=== PATIENT | female | born 1965 | race Caucasian/White ===

== ENCOUNTER 2017-09-14 12:16 | Observation (INO) | payer MEDICARE ==
[2017-09-14 13:07] LABS: ABS Basophils 0.1 10^3/ul (0-0.2); ABS Eosinophils 0.3 10^3/ul (0-0.6); ABS Lymphocytes 1.4 10^3/ul (1.0-4.8); ABS Monocytes 0.5 10^3/ul (0-0.8); ABS Neutrophils 2.9 10^3/ul (1.5-7.7); ABS Nucleated RBC 0 10^3/ul; Eosinophil % 5.5 % (0-6); Hematocrit 32 % (35-47); Hemoglobin 10.8 g/dl (12.0-16.0); Lymphocyte % 26.8 % (25-47); Mean Corpuscular HGB Conc 34 g/dl (31-36); Mean Corpuscular Hemoglobin 29 pg (27-31); Mean Corpuscular Volume 87 fL (80-97); Mean Platelet Volume 7 um3 (7.4-10.4); Nucleated Red Blood Cells % 0; Platelet Count 238 10^3/ul (150-450); Red Blood Count 3.67 10^6/ul (4.0-5.4); Red Cell Distribution Width 13 % (10.5-15); White Blood Count 5.1 10^3/ul (3.5-10.8)
[2017-09-14 13:17] LABS: INR 0.94 (0.77-1.02)
--- NOTE | 2017-09-14 13:23 | RAD ---
HISTORY: Status post anterior cervical fusion COMPARISONS: June 07, 2013 VIEWS: 1: frontal portable view of the chest at 1:06 PM FINDINGS: LINES AND TUBES: None. CARDIOMEDIASTINAL SILHOUETTE: The cardiomediastinal silhouette is normal for portable technique. PLEURA: The costophrenic angles are sharp. No pleural abnormalities are noted. LUNG PARENCHYMA: The lungs are clear. ABDOMEN: The upper abdomen is clear. There is no subphrenic gas. BONES AND SOFT TISSUES: The patient is status post anterior cervical fusion IMPRESSION: NO ACTIVE CARDIOPULMONARY DISEASE.
[2017-09-14 13:49] LABS: EGFR Non-African American 54.6 (>60)
[2017-09-14] MEDS ORDERED: Furosemide IV* 10 MG/ML VIAL (40 MG) IV ONE (14:01)
[2017-09-14] MEDS ORDERED: Potassium Chlor TAB* 20 MEQ TAB.ER PO ONE (15:53)
[2017-09-14] MEDS ORDERED: Iodixanol* (CONTRAST) 320 MG/ML 100 ML SDV IV ONE (16:12)
[2017-09-14] MEDS ORDERED: Albuterol HFA INHALER* 8 gm MDI INH PRN (16:28)
[2017-09-14] MEDS ORDERED: Fluticasone NASAL SPRAY 50MCG* 16 gm SPRAY BTL BOTH NARES PRN (16:28)
[2017-09-14 17:36] LABS: Urine Appearance Clear; Urine Blood Negative (Negative); Urine Color Yellow; Urine Ketones Negative (Negative); Urine Protein Negative (Negative); Urine Specific Gravity 1.008 (1.010-1.030); Urine Urobilinogen Negative (Negative)
[2017-09-14] MEDS ORDERED: QUEtiapine TAB* 100 MG PO SCH (18:00)
--- NOTE | 2017-09-14 18:27 | RAD ---
INDICATION: Shortness of breath. Feet and leg swelling. COMPARISON: June 07, 2013 TECHNIQUE: Multidetector CT images were obtained from the lung bases to the ischial tuberosities with 100 mL Visipaque 320 IV and oral contrast. Multiplanar reformation. REPORT: Unremarkable visualized inferior thorax. Decreased density of the liver consistent with fatty infiltration. No focal hepatic lesions or biliary dilatation. No CT abnormality of the gallbladder, pancreas, spleen. Distended stomach with oral contrast. Oral contrast extends to the ileum but does not reach the colon. No suspicious CT finding of the small bowel. While the appendix is not discretely visualized, there is no inflammatory change in the right lower quadrant or region of the tip of the cecum to suggest presence of an acute inflammatory process. Moderately large volume of formed stool throughout the colon. Negative for ascites or free air. Small fat-containing umbilical hernia without inflammatory change. Normal adrenal glands. Unremarkable kidneys with symmetric nephrograms and pyelograms. Unremarkable nondilated ureters and distended urinary bladder as well as the small retroverted uterus and adnexal regions. Negative for lymphadenopathy. Normal diameter abdominal aorta and iliac arteries. Physiologic distention of the IVC. Negative for suspicious osseous lesions. IMPRESSION: 1. Fatty infiltration of the liver. 2. No pathologic process of the alimentary tract evident. 3. Moderately large volume of stool throughout the colon. 4. Negative for obstructive uropathy.
[2017-09-14] MEDS ORDERED: NS 0.9% 1000 ML* 1,000 ML IV SCH (18:30)
[2017-09-14] MEDS ORDERED: Magnesium Hydroxide LIQ* 30 ML UDC PO PRN (18:33)
[2017-09-14] MEDS ORDERED: Sodium Phosphate ADULT ENEMA* 118 ml bottle PR PRN (18:34)
[2017-09-14] MEDS: Gabapentin CAP(*) 300 MG PO SCH ×2 (18:59→22:41)
[2017-09-14] MEDS: QUEtiapine TAB* 25 MG PO SCH (19:16)
--- NOTE | 2017-09-14 19:57 | HP ---
HISTORY AND PHYSICAL:* ADDENDUM: An addendum to history and physical dictated by Kristie Pringle NP. Adeline Jonas is a 52-year-old female with history of chronic pain, who presented to the hospital, appeared sedated and her lactic acid elevated. Patient complained of bilateral leg edema and weight gain. Patient is going to be placed on overnight observation. Her Seroquel is going to be held. We will also lower her doses of her narcotics that she is on chronically. She is going to be placed on gentle intravenous hydration and her lactic acid is going to be rechecked. For further details of the patient's presentation and plan, please see history and physical dictated by Kristie Rangel on 09/14/17 with which I agree. [id number]/CPS #: [id number] MTDD
[2017-09-14] MEDS: Mometasone/Formoter 200/5 MDI INH SCH (20:24)
--- NOTE | 2017-09-14 20:31 | HP ---
ATTENDING PHYSICIAN ADDENDUM NOW INCLUDED ON THIS ADDENDUM CC: Fuad Daugherty MD * HISTORY AND PHYSICAL: DATE OF ADMISSION: 09/14/17 PRIMARY CARE PROVIDER: Fuad Daugherty MD ATTENDING PHYSICIAN: Carmita Coombs MD * (dictated by Richie Pringle NP). CHIEF COMPLAINT: Diffuse abdominal discomfort, reflux, urinary urgency and hesitancy, lightheadedness, shortness of breath and lower extremity swelling. HISTORY OF PRESENT ILLNESS: Ms. Jonas is a 52-year-old female with past medical history significant for multinodular thyroid goiter, hypertension, hyperlipidemia, IBS, obstructive sleep apnea, restless leg syndrome, asthma, migraines, fibromyalgia, right thyroid neoplasm and GERD, who presented to the emergency room with multiple complaints today. The patient states that approximately 3 months ago, she was hearing voices and was started on Seroquel and risperidone. She has been following with her primary care provider, Dr. Daugherty, for increased lower extremity swelling and weight gain. It was felt that this was secondary to the Seroquel and risperidone and so he had been titrating it accordingly. The patient states she feels as though her abdomen and face have also had swelling. She reports constipation. She is followed by GI for opioid-induced constipation. The patient reports having urinary urgency and then when she gets to the bathroom, having hesitancy. This has been going on for a while. She reports lightheadedness when changing positions. She reports shortness of breath with exertion and at rest today prompting her to come to the ER. She has intermittently been having chest tightness for the last 3 weeks , worse with eating. She had chills yesterday. Denies any fever. Denies diarrhea. Denies dysuria. She states that she feels in the last few months she has gained approximately 30 pounds. She has been self adjusting her torsemide from 20 mg to 40 mg daily. According to her primary care doctor's notes, it also appears that she has been titrating some of her other medications on her own also. Due to her continued worsening edema, she decided to present to the emergency room for further evaluation. While in the emergency room, the patient had a chest x-ray showing no active cardiopulmonary disease. She had an EKG showing sinus tachycardia. She had labs significant for hypokalemia with potassium of 3.2, lactic acid of 3.9. Troponin of 0.00. She had TSH of 6.39 and T4 of 5.06. She had a negative urinalysis. She was noted to have a slight anemia with hemoglobin of 10.8 and hematocrit of 32. Due to her presentation, the hospitalists were asked to evaluate the patient for admission. PAST MEDICAL HISTORY: 1. Multiple nodular thyroid goiter with right thyroid neoplasm. 2. Hypertension. 3. Hyperlipidemia. 4. IBS with constipation. 5. Obstructive sleep apnea. 6. Restless leg syndrome. 7. Asthma. 8. Migraines. 9. Fibromyalgia. 10. GERD. PAST SURGICAL HISTORY: 1. Status post appendectomy the end of July 2017. 2. Status post ACDF of C5, C6, and C7 in 2008. 3. Status post bilateral maxillary sinus surgery in 2008. 4. Status post hemorrhoidectomy in 1999. 5. Status post right thyroid lobectomy in 2012. HOME MEDICATIONS: Include: 1. Praluent 75 mg subcutaneous every 14 days. 2. Minocycline 100 mg oral twice daily with meals. 3. Clindamycin phosphate-benzoyl 1, apply topical daily as needed. 4. Colace 100 mg oral twice daily. 5. Aspirin 81 mg oral daily. 6. Simethicone 250 mg to 500 mg oral daily as needed for gas discomfort. 7. Flonase 2 sprays to both nares daily as needed for allergy symptoms. 8. Advair HFA 115/21, 2 puffs inhalation twice daily. 9. Verapamil 240 mg oral daily. 10. Meloxicam 15 mg oral daily with meal. 11. Omeprazole 20 mg oral daily. 12. Imitrex 100 mg oral every 2 hours as needed for migraine. 13. Lorazepam 1 mg oral every 8 hours as needed for anxiety. 14. MiraLax 17 g oral daily. 15. Zofran 4 mg oral every 6 hours as needed for nausea. 16. Losartan 100 mg oral daily. 17. Torsemide 20 mg oral daily. 18. Cymbalta 60 mg oral daily. 19. Icy hot 16% apply topical daily as needed for muscle pain. 20. Vitamin B12, 1000 mcg intramuscular monthly. 21. Estradiol vaginal 0.1 mg vaginally 3 times a week. 22. Neurontin 300 mg oral 4 times daily. 22. Albuterol HFA 2 puffs inhalation every 4 hours as needed for shortness of breath or wheeze. 22. Oxycodone SR 20 mg oral every 12 hours. 23. Vitamin D 1000 units oral daily. 24. Levothyroxine 75 mcg oral daily. 25. Hydrocodone/acetaminophen 7.5/325 mg 1 tablet oral every 6 hours as needed for pain. 26. Seroquel 100 mg oral every evening. 27. Risperidone 1 mg oral daily at bedtime. 28. Risperidone 2 mg oral daily every morning. 29. Metoprolol tartrate 25 mg oral twice daily. 30. Movantik 25 mg oral daily. ALLERGIES: AZITHROMYCIN, REGLAN, and ADHESIVE TAPE. FAMILY HISTORY: The patient's mother, father, sister and brother have a history of heart disease. The patient denies family history of diabetes mellitus. She reports a paternal uncle with history of colon cancer and a paternal uncle with history of prostate and liver cancer. SOCIAL HISTORY: The patient is a former smoker, quitting approximately 6 years ago. Prior to that, she had a 35-year, half a pack day smoking history. She denies alcohol or recreational drug use. Her mother, Lo Jonas or her sister, Kiesha Mayer, will be her surrogate decision makers in the event she is unable to make decisions for herself. REVIEW OF SYSTEMS: I performed a 14-point review of systems. All the pertinent positives and negatives are mentioned in the history of present illness. The remaining review of systems are negative. PHYSICAL EXAMINATION GENERAL APPEARANCE: The patient is drowsy, pleasant, and appears to be in no acute distress. VITAL SIGNS: Temperature 98.6, heart rate 104, respiratory rate 12, O2 sat 97% on room air, blood pressure 125/75. HEENT: Normocephalic, atraumatic. Pupils are equal and reactive to light. Extraocular movements are intact. RESPIRATORY: There is no accessory muscle use and lungs are clear to auscultation bilateral. CARDIOVASCULAR: Regular rate and rhythm. S1, S2 present. There is no murmur, rubs or gallops heard. ABDOMEN: Large, soft, nontender. There are bowel sounds present x4. EXTREMITIES: There is trace to 1+ bilateral lower extremity edema. MUSCULOSKELETAL: There is no clubbing or cyanosis noted. NEUROLOGIC: The patient is alert and oriented x4. Cranial nerves II through XII are grossly intact. PSYCHOLOGICAL: The patient is calm and cooperative. SKIN: There are no rashes or abnormalities seen. DIAGNOSTIC STUDIES/LABORATORY DATA: Sodium 137, potassium 3.2, chloride 96, CO2 of 30, BUN 18, creatinine 1.05, glucose 167, lactic acid 3.9, TSH 6.39, T4 of 5.06. Troponin 0.00. White blood cell count 5.1, hemoglobin 10.8, hematocrit 32, platelet count 238,000. Urinalysis negative. EKG shows sinus tachycardia and rate of 104. There are no acute signs of ischemia. This EKG is similar to previous EKG from 06/07/13. Chest x-ray from today. Radiologist's impression: No active cardiopulmonary disease. IMPRESSION: Ms. Jonas is a 52-year-old female with past medical history significant for multinodular thyroid goiter and right thyroid neoplasm, hypertension, hyperlipidemia, irritable bowel syndrome, obstructive sleep apnea , restless leg syndrome, asthma, migraines, fibromyalgia and gastroesophageal reflux disease, who presented to the emergency room with numerous complaints. She will be admitted as observation for lower extremity swelling and elevated lactic acid. ASSESSMENT/PLAN: 1. Lower extremity edema. Unclear cause at this time. I suspect it could be secondary to some of her medications. In general, I think she has gained weight due to some of the medications she has recently been started on such as risperidone and Seroquel. We will check an echocardiogram in the morning. She will be continued on her torsemide. She did receive a dose of furosemide while in the emergency room. 2. Elevated lactic acid. She does not have any signs of infection. She has no signs of infection on her chest x-ray and her urinalysis is negative. I suspect this could be secondary to medications. Recheck lactic acid later today and if it is still elevated we will recheck again in the morning, I will give her some gentle IV hydration overnight. 3. Abdominal pain. CT abdomen and pelvis pending. I suspect her abdominal discomfort is secondary to constipation. She will be placed on a bowel regimen. 4. Asthma. The patient will be continued on her home Advair and albuterol as needed. 5. Fibromyalgia. The patient will be continued on her home Cymbalta. We will continue her home gabapentin, but hold for sedation. I am going to hold the patient's oxycodone SR as she is quite sleepy at this time. 6. Hypertension. The patient will be continued on her home Cozaar, metoprolol , torsemide, verapamil. 7. Hypothyroidism. The patient's labs show that she is still hypothyroid, although it appears she had her levothyroxine increased approximately 6 weeks ago. I am going to increase her levothyroxine to 100 mcg daily and she will need to have a followup TSH in approximately 6 weeks. 8. Constipation. The patient has opioid-induced constipation. She will be continued on her home bowel regimen of MiraLax and Colace. I suspect that this could be causing some of her abdominal discomfort in addition to her reports of inability to urinate. 9. Fluids, electrolytes and nutrition. The patient will be on n.p.o. until after she has an abdomen CT. If that is without significant findings, she can go on a low sodium diet. 10. Code status. Full code. 11. DVT prophylaxis. The patient is at high risk and will be on subcu heparin. 12. Disposition. Observation. TIME SPENT: Time for this admission was approximately 60 minutes, greater than half of that was spent with the patient discussing medications, past medical history and the events leading to her arrival today, performing a physical examination. The case has been reviewed with the attending, Dr. Coombs, who agrees with the plan of care. Reviewed by RICHIE PRINGLE, ROBIN 09/14/174 ADDENDUM: An addendum to history and physical dictated by Richie Pringle NP. Adeline Jonas is a 52-year-old female with history of chronic pain, who presented to the hospital, appeared sedated and her lactic acid elevated. Patient complained of bilateral leg edema and weight gain. Patient is going to be placed on overnight observation. Her Seroquel is going to be held. We will also lower her doses of her narcotics that she is on chronically. She is going to be placed on gentle intravenous hydration and her lactic acid is going to be rechecked. For further details of the patient's presentation and plan, please see history and physical dictated by Richie Rangel on 09/14/17 with which I agree. CARMITA COOMBS MD [id number]/CPS #: [id number] #: [id number] USMAN
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
[2017-09-14] MEDS: Docusate CAP* 100 MG PO SCH (22:41)
[2017-09-14] MEDS: Metoprolol Tartrate TAB* 25 MG PO SCH (22:42)
[2017-09-14] MEDS: Heparin VIAL(*) 5000 UNITS/ML VIAL (FIVE THOUSAND) SUBCUT SCH (22:42)
[2017-09-15] MEDS: Heparin VIAL(*) 5000 UNITS/ML VIAL (FIVE THOUSAND) SUBCUT SCH ×2 (05:18→13:57)
[2017-09-15] MEDS ORDERED: Levothyroxine TAB* 100 MCG TAB PO SCH (06:00)
[2017-09-15] MEDS: Mometasone/Formoter 200/5 MDI INH SCH (07:58)
[2017-09-15 08:26] LABS: ABS Basophils 0.1 10^3/ul (0-0.2); ABS Eosinophils 0.3 10^3/ul (0-0.6); ABS Lymphocytes 1.3 10^3/ul (1.0-4.8); ABS Monocytes 0.5 10^3/ul (0-0.8); ABS Neutrophils 1.8 10^3/ul (1.5-7.7); ABS Nucleated RBC 0 10^3/ul; Eosinophil % 7.6 % (0-6); Hematocrit 30 % (35-47); Hemoglobin 10.5 g/dl (12.0-16.0); Lymphocyte % 32.9 % (25-47); Mean Corpuscular HGB Conc 35 g/dl (31-36); Mean Corpuscular Hemoglobin 30 pg (27-31); Mean Corpuscular Volume 88 fL (80-97); Mean Platelet Volume 7 um3 (7.4-10.4); Nucleated Red Blood Cells % 0; Platelet Count 258 10^3/ul (150-450); Red Blood Count 3.45 10^6/ul (4.0-5.4); Red Cell Distribution Width 13 % (10.5-15); White Blood Count 4.1 10^3/ul (3.5-10.8)
[2017-09-15] MEDS ORDERED: DULoxetine DR CAP* 60 MG CAP.DR PO SCH (09:00)
[2017-09-15] MEDS ORDERED: Cholecalciferol TAB* 1000 UNITS PO SCH (09:00)
[2017-09-15] MEDS ORDERED: Losartan TAB* 25 MG PO SCH (09:00)
[2017-09-15] MEDS ORDERED: Aspirin EC Low Dose* 81 MG TAB.EC PO SCH (09:00)
[2017-09-15] MEDS ORDERED: Torsemide TAB* 20 MG PO SCH (09:00)
[2017-09-15] MEDS ORDERED: Polyethylene Glycol 3350* 17 GM PACKET PO SCH (09:00)
[2017-09-15] MEDS ORDERED: Verapamil SR TAB* 240 MG PO SCH (09:00)
[2017-09-15] MEDS ORDERED: risperiDONE TAB* 1 MG PO SCH (09:00)
[2017-09-15] MEDS ORDERED: Omeprazole CAP* 20 MG PO SCH (09:00)
[2017-09-15 09:59] VITALS: BP 132/77
[2017-09-15] MEDS: Docusate CAP* 100 MG PO SCH (10:00)
[2017-09-15] MEDS: Metoprolol Tartrate TAB* 25 MG PO SCH (10:00)
[2017-09-15] MEDS: Gabapentin CAP(*) 300 MG PO SCH ×2 (10:00→13:57)
[2017-09-15] MEDS: QUEtiapine TAB* 25 MG PO SCH (10:01)
[2017-09-15] MEDS ORDERED: Nicotine Inhaler* 10 MG AMP INH PRN (11:06)
[2017-09-15] MEDS ORDERED: Mouth Piece, Nicotine* 1 EACH CARTRIDGE INH PRN (11:06)
[2017-09-15] MEDS ORDERED: Perflutren Lipid Microsphere* 3 ML VIAL ONE (12:35)
[2017-09-15 13:01] LABS: EGFR Non-African American 64.4 (>60)
--- NOTE | 2017-09-15 15:22 | ECHO ---
Patient: MORGAN HOBBS [facility] Rec#: [id number] : 1965 Date: 09/15/2017 Age: 52y Height: 160.02 cm / 63.0 in Weight: 84.37 kg / 186.0 lbs Sex: F BSA: 1.88 Room#: [facility] Admit Date#: 09/14/2017 Type: Inpatient Referring: Kristie Raymond NP Reading: Madeline Taylor MD Electric Serviceman: Danay Omalley,RDCS,RDMS CC: Fuad Daugherty MD Transthoracic Echocardiogram Indication: Edema, SOB BP: 140/91 HR: 93 Rhythm: NSR Findings History: Cardiac ablation, premature beats, HTN, HLD, LOIS, former smoker Technical Comments: The study is technically limited due to poor acoustic windows. Left Ventricle: The left ventricular chamber size is normal. Mild concentric left ventricular hypertrophy is observed. The left ventricle appears hyperdynamic. The estimated ejection fraction is 60-65%. Abnormal left ventricular diastolic function is observed. Left Atrium: The left atrium is mildly dilated. Right Ventricle: The right ventricular chamber size and systolic function are within normal limits. The right ventricle wall thickness is mildly increased. Right Atrium: The right atrium is slightly dilated. Aortic Valve: The aortic valve structure is not well visualized. There is no evidence of aortic valve thickening. There is no evidence of aortic regurgitation. There is no evidence of aortic stenosis. Mitral Valve: The mitral valve leaflets appear normal. There is mitral annular calcification. There is no evidence of mitral regurgitation. There is no evidence of mitral stenosis. Tricuspid Valve: The tricuspid valve leaflets are normal. There is trace tricuspid regurgitation. Unable to estimate the right ventricular systolic pressure. Pulmonic Valve: There is no evidence of pulmonic valve thickening. There is a trace pulmonic regurgitation. Pericardium: There is no significant pericardial effusion. Aorta: The aortic root appears normal. There is no dilatation of the aortic arch. Pulmonary Artery: The main pulmonary artery is not well visualized. Venous: The inferior vena cava appears normal in size. There is a greater than 50% respiratory change in the inferior vena cava dimension. Contrast: Definity was used to optimize study. A total of 3 ML was used Conclusions Mild concentric left ventricular hypertrophy is observed. The left ventricle appears hyperdynamic. The estimated ejection fraction is 60-65%. The right ventricle wall thickness is mildly increased. The right ventricular chamber size and systolic function are within normal limits. All valves show good function. There is trace tricuspid regurgitation. Compared with prior echo of 04/28/13, LV function stable, RVH newly noted, prior study had trace MR and mild TR. Measurements Name Value Normal Range RVIDd (AP) 2D 3.2 cm (0.9 - 2.6) RVDdMajor (2D) 2.8 cm (2.2 - 4.4) RAd ISD 4CH 4.5 cm (3.4 - 4.9) RA (A4C)W 4.8 cm (2.9 - 4.6) IVSd (2D) 1.2 cm (0.6 - 1) LVPWd (2D) 1.2 cm (0.6 - 1) LVIDd (2D) 4.1 cm (3.6 - 5.4) LVIDs (2D) 2.4 cm - LV FS (2D) 40 % (25 - 45) Aortic Annulus 2.1 cm (1.4 - 2.6) Ao root diameter (2D) 2.9 cm (2.1 - 3.5) Ascending Ao 2.8 cm (2.1 - 3.4) Aortic arch 2.6 cm (1.8 - 3.4) LA dimension (AP) 2D 4 cm (2.3 - 3.8) LAd ISD 4CH 5.2 cm (2.9 - 5.3) LA ISD 4CH W 4.8 cm (2.5 - 4.5) Name Value Normal Range LA ESV SP 4CH (A/L) 67.18 ml - LA ESV BP (A/L) index 34.5 ml/m2 - LA ESV SP 4CH (MOD) 62.82 ml - Name Value Normal Range MV E-wave Vmax 0.6 m/sec - MV deceleration time 166 msec - MV A-wave Vmax 0.7 m/sec - MV E:A ratio 0.9 ratio - P. vein S-wave Vmax 0.6 m/sec - P. vein D-wave Vmax 0.5 m/sec - P. vein S:D Vmax ratio 1.3 ratio - P. vein A-wave duration 76 msec - LV septal e' Vmax 0.06 m/sec - LV lateral e' Vmax 0.08 m/sec - LV E:e' septal ratio 10 ratio - LV E:e' lateral ratio 7.5 ratio - Name Value Normal Range AV Vmax 1.6 m/sec - AV VTI 30 cm - AV peak gradient 10 mmHg - AV mean gradient 5.3 mmHg - LVOT Vmax 1.3 m/sec - LVOT VTI 23 cm - LVOT peak gradient 7 mmHg - LVOT mean gradient 2.7 mmHg - TERRIE Vmax 1.2 m/sec - Name Value Normal Range RAP 8 mmHg - IVC diameter 1.9 cm - Name Value Normal Range PV Vmax 1 m/sec - PV peak gradient 4 mmHg -
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
--- NOTE | 2017-09-16 15:38 | DS ---
DISCHARGE SUMMARY: DATE OF ADMISSION: 09/14/17 DATE OF DISCHARGE: 09/15/17 PRIMARY CARE PROVIDER: Fuad Daugherty MD ADMITTING PROVIDER: Kristie Rangel NP ATTENDING PHYSICIAN: Choco Rasheed MD CHIEF COMPLAINT: Diffuse abdominal discomfort, reflux, urinary hesitancy and urgency, lightheadedness, shortness of breath, progressive lower extremity swelling. PRINCIPAL DIAGNOSES: Constipation; side effects from SSRI. HISTORY OF PRESENT ILLNESS AND HOSPITAL COURSE: Ms. Jonas is a 52-year-old female with complex PMH including diastolic heart failure, fibromyalgia, migraines, IBS, chronic opioid use, hypertension, hyperlipidemia, multiple nodular thyroid goiter with right thyroid neoplasm, obstructive sleep apnea, restless legs syndrome, GERD, and recent start of auditory and tactile hallucinations that began around . She was admitted briefly to emergency room of [facility] on 08/15/17, for 1 day at the behavioral health unit, where she did not feel comfortable and reported later that she feigned resolution of her other auditory hallucinations so that she will be discharged and since has been following with Dr. Daugherty. These auditory hallucinations were threatening in nature. Dr. Daugherty lowered her Seroquel to 100 mg nightly from 150 and added risperidone 2 mg twice a day, which did improve the hallucinations, though the patient still reports that she sometimes hears them softly; however, she has had a complaint of swelling of her tongue, difficulty chewing, urinary hesitancy, constipation, and progressive edema. She reported that she has gained approximately 30 pounds in last few months and had been self-titrating her torsemide up from 20 a day to 40 a day and then finally 60 a day. Most recently, she takes opioids for her fibromyalgia, takes Movantik for opioid-induced constipation, and now on presentation to [facility] had a CT scan, which showed large stool burden, she was given milk of magnesia and she had 1 large stool and 1 smaller stool and then had great relief in her abdominal bloating symptoms. She was eager for discharge, frequently trying to elope off the unit too, mainly smoking cigarette despite offers of nicotine patch and use of a nicotine inhaler. Given her weight gain, history of diastolic heart failure, and what she described as a high PVC burden history, status post cardiac ablation up in [place], the patient had repeat echocardiogram performed, which showed preserved ejection fraction and evidence of diastolic dysfunction. Valuable corroboratory information was provided by primary care physician, Dr. Fuad Daugherty, who suggested getting psychiatric consultation given the difficulties of arranging for a timely followup in the outpatient setting in the [place] area to see a psychiatrist. Dr. Greene of Psychiatry graciously consulted and recommended cessation of the Seroquel and Risperdal, starting Abilify 5 mg daily. The patient will be seeing her family counselor within 2 days of discharge and should know more about her intake into the [facility] of that visit hopefully. The patient is being discharged to follow up with Dr. Fuad Daugherty within 1 week. Given her 1+ pitting edema and weight gain, the patient will continue to take the torsemide 60 mg daily until she can follow with Dr. Daugherty. Of note, the patient did have lactic acidosis on presentation of 3.9, which resolved. DISCHARGE MEDICATIONS: Include: 1. Abilify 5 mg p.o. daily. 2. Torsemide 60 mg p.o. daily. 3. Albuterol 2 puffs inhaled q.4 hours. 4. Alirocumab (Praluent) 75 mg subcutaneous q.14 days. 5. Aspirin 81 mg daily. 6. Cholecalciferol 1000 units p.o. daily. 7. Clindamycin gel topical daily. 8. Cyanocobalamin 1000 mcg IM monthly. 9. Docusate 100 mg p.o. b.i.d. 10. Cymbalta 60 mg p.o. daily. 11. Estradiol 0.1 mg vaginal cream 3 times a week. 12. Advair 2 puffs inhaled b.i.d. 13. Flonase nasal spray, 2 sprays both nares daily. 14. Gabapentin 300 mg p.o. four times a day. 15. Hydrocodone/acetaminophen 7.5/325 mg 1 tab p.o. q.6 hours. 16. Levothyroxine 75 mcg p.o. daily. 17. Lorazepam 1 mg p.o. q.8 hours p.r.n. 18. Losartan 100 mg p.o. daily. 19. Meloxicam 15 mg p.o. daily. 20. Menthol Icy Hot spray topical daily. 21. Metoprolol 25 mg p.o. b.i.d. 22. Minocycline 50 mg p.o. daily. 23. Movantik 25 mg p.o. daily. 24. Prilosec 20 mg p.o. daily. 25. Zofran 4 mg p.o. q.6 hours. 26. OxyContin 20 mg q.12 hours. 27. MiraLAX 17 g p.o. daily. 28. Simethicone 250 to 500 mg p.o. daily. 29. Imitrex 100 mg p.o. q.2 hours p.r.n. migraines. 30. Verapamil 240 mg p.o. daily. DISCHARGE DIET: Heart healthy. ACTIVITY LEVEL: No restrictions. FOLLOWUP: Please follow up with Dr. Daugherty within 5 days of discharge and [facility] on 09/17/17 , at 1 p.m. TIME SPENT: On discharge 40 minutes. [id number]/[facility] #: [id number] USMAN
== END 2017-09-15 17:00 | disposition home or self-care (01) ==
LOC: ED 12:16 → MED 16:24
PROVIDERS: ADMIT Internal Medicine; ATTEND Internal Medicine
DX: K59.00 Constipation, unspecified (principal); R10.9 Unspecified abdominal pain; K21.9 Gastro-esophageal reflux disease without esophagitis; R74.0 Nonspecific elevation of levels of transaminase and lactic acid dehydrogenase [LDH]; R06.02 Shortness of breath; M79.89 Other specified soft tissue disorders; I10 Essential (primary) hypertension; E78.5 Hyperlipidemia, unspecified; G25.81 Restless legs syndrome; Z79.899 Other long term (current) drug therapy; Z88.8 Allergy status to other drugs, medicaments and biological substances; Z88.1 Allergy status to other antibiotic agents; E04.8 Other specified nontoxic goiter; Z87.891 Personal history of nicotine dependence; M79.7 Fibromyalgia; R00.0 Tachycardia, unspecified; I51.7 Cardiomegaly
CPT/HCPCS: 36415; 71045; 74177; 80048; 80053; 81003; 82550; 82553; 83605; 83735; 83880; 84436; 84443; 84484; 85025; 85379; 85610; 85730; 93005; 93306; 94640; 96361; 96372; 96374; 99283; A9270-GY; C8929; G0378; J1644; J1940; Q9967

== ENCOUNTER 2019-03-01 10:56 | Day surgery (SDC) | payer MEDICARE ==
[~2019-03-01 10:56] MED LIST: Buffered Lidocaine 1% SYRIN* 1 ML/SYRINGE INTRADERM ONE; Lactated Ringers 1000 ML Bag* 1,000 ML IV SCH
[2019-03-01] MEDS ORDERED: Midazolam* 1 MG/ML 5 ML VIAL (5 MG) ONE (13:43)
[2019-03-01] MEDS ORDERED: fentaNYL* 50 MCG/ML 2 ML VIAL (100 MCG VIAL) ONE (13:46)
[2019-03-01] MEDS ORDERED: Lidocaine 2% JELLY* 6 ML JELLY TOPICAL ONE (13:49)
[2019-03-01] MEDS ORDERED: Acetaminophen TAB* 325 MG PO PRN (14:11)
[2019-03-01] MEDS ORDERED: DiMENhydriNATE IV* 50 MG/ML VIAL IV PUSH PRN (14:11)
[2019-03-01] MEDS ORDERED: Naloxone* 0.4 MG/ML 1 ML VIAL IV PRN (14:11)
[2019-03-01] MEDS ORDERED: Succinylcholine* 20 MG/ML 10 ML VIAL ONE (14:13)
[2019-03-01] MEDS ORDERED: Ondansetron INJ* 2 MG/ML VIAL ONE (14:13)
[2019-03-01] MEDS ORDERED: Dexamethasone IV* 4 MG/ML 1 ML (4 MG) ONE (14:13)
[2019-03-01] MEDS ORDERED: Propofol* 10 MG/ML 20 ML BTL ONE (14:13)
[2019-03-01] MEDS ORDERED: Lidocaine 2% PF * 5 ML VIAL ONE (14:14)
[2019-03-01 16:00] VITALS: BP 145/94
--- NOTE | 2019-03-02 09:36 | PRO ---
CC: Deanne Muro MD * DATE OF PROCEDURE: 03/01/19 LOCATED WITHIN [facility] PROCEDURE: EGD with biopsy. REFERRING PROVIDER: Deanne Muro MD. INDICATION: The patient was seen in clinic recently. She reported three months of intermittent epigastric and left upper quadrant pain. Also reports persistent heartburn despite PPI twice a day. She recalls being told that there was a "beginning of a duodenal ulcer" on a prior upper endoscopy. The patient also reports a history of possible gastroparesis. MEDICATIONS: Given by Anesthesia. DESCRIPTION OF PROCEDURE: Full disclosure of risks was reviewed with the patient as detailed on the consent form. The patient was placed in the left lateral decubitus position and monitored with continuous pulse oximetry, capnography, interval blood pressure monitoring, and direct observation. A bite block was placed between the patient's teeth. An adult gastroscope was then inserted into the patient's mouth and advanced down the esophagus, into the stomach, and into the distal duodenum. Findings and interventions are described below. FINDINGS: Esophagus was noted to be fairly spastic. No esophageal ring or stricture appreciated. GE junction was very minimally irregular and occurred at 42 cm. Scope was advanced into the stomach. The stomach was examined in the forward and retroflexed views. Gastric mucosa was normal with the exception of a few white patches on the mucosa of the distal gastric body. Biopsies obtained. Biopsy also obtained from the gastric antrum and sent for CLOtest. Of note, there was no retained fluid or liquid seen in the stomach to suggest significant gastroparesis. Scope was then advanced into the duodenum to at least the third portion. Duodenal mucosa was normal in appearance. No erosions or ulcers. Biopsies obtained. Scope was then withdrawn from the patient. The patient tolerated the procedure well and was recovered in the GI recovery area. IMPRESSION: 1. Complete upper endoscopy to distal duodenum. 2. Fairly spastic esophagus. 3. A few whitish patches seen on the mucosa of the distal gastric body. Unclear significance. 4. No explanation for the patient's abdominal pain identified on this exam. FOLLOWUP: 1. Await pathology. 2. Continue PPI twice daily. 3. Follow up in GI clinic. Thank you very much for this referral. [id number]/[facility] #: [id number] [facility] CENTERLaura
--- NOTE | 2019-03-02 12:52 | PRO ---
CC: Deanne Muro MD * DATE OF PROCEDURE: 03/02/19 [facility] PROCEDURE: Colonoscopy. REFERRING PROVIDER: Deanne Muro MD INDICATION: The patient reports that she had colon polyps at her last colonoscopy, which was in 2008. Record of this colonoscopy not available today. MEDICATIONS GIVEN: By Anesthesia. DESCRIPTION OF PROCEDURE: Full disclosure of risks was reviewed with the patient as detailed on the consent form. The patient was placed in the left lateral decubitus position and monitored with continuous pulse oximetry, capnography, interval blood pressure monitoring, and direct observation. After anorectal examination was performed, the adult colonoscope was inserted into the rectum and slowly advanced forward to the level of the terminal ileum. Complete views of the cecum were obtained including the medial wall between the IC valve and the appendiceal orifice. Quality of the prep was fair. There were scattered areas of sediment, which were extensively washed and suctioned with some persistently limited views in small portions of the right colon. Photodocumentation of landmarks obtained. Careful inspection was made as the colonoscope was withdrawn. Retroflexion was performed in the rectum. Findings and interventions are described below. FINDINGS: Anorectal exam was unremarkable. Colonoscope was inserted into the rectum and slowly advanced forward to the level of the cecum. Once in the cecum , the terminal ileum was intubated x 5 cm. Ileal mucosa was unremarkable. Scope was then withdrawn into cecum and throughout length of colon. No polyps or masses appreciated. No significant diverticulosis. Retroflexion in the rectum revealed internal hemorrhoids. The scope was then withdrawn from the patient. The patient tolerated the procedure well and was recovered in the GI recovery area. IMPRESSION: 1. Complete colonoscopy to terminal ileum. Fair prep. 2. No polyps. 3. Internal hemorrhoids. FOLLOWUP: 1. Continue management for constipation with Linzess. 2. Recommend repeat colonoscopy in 5 years given history of polyps. Thank you very much for this referral. [id number]/[facility] #: [id number] [facility]ALLaura
== END 2019-03-01 16:30 | disposition home or self-care (01) ==
LOC: OR 10:56
PROVIDERS: ATTEND Internal Medicine Gastroenterology
DX: K21.9 Gastro-esophageal reflux disease without esophagitis (principal); K22.4 Dyskinesia of esophagus; K31.84 Gastroparesis; K64.8 Other hemorrhoids; R10.12 Left upper quadrant pain; Z86.010 Personal history of colon polyps; I10 Essential (primary) hypertension; J45.909 Unspecified asthma, uncomplicated; G47.33 Obstructive sleep apnea (adult) (pediatric); E03.9 Hypothyroidism, unspecified
CPT/HCPCS: 87077; 88305; J0330; J1100; J2250; J2405; J2704; J3010

== ENCOUNTER 2021-05-23 17:26 | Observation (INO) ==
[2021-05-23 20:19] LABS: ABS Basophils 0.1 10^3/ul (0-0.2); ABS Lymphocytes 1.6 10^3/ul (1.0-4.8); ABS Monocytes 0.5 10^3/ul (0-0.8); ABS Neutrophils 4.8 10^3/ul (1.5-7.7); Eosinophil % 0.7 %; Hematocrit 38 % (35-47); Lymphocyte % 22.3 %; Mean Corpuscular HGB Conc 34 g/dL (31-36); Mean Corpuscular Hemoglobin 31 pg (27-31); Mean Corpuscular Volume 90 fL (80-97); Mean Platelet Volume 7.5 fL (7.4-10.4); Platelet Count 287 10^3/uL (150-450); Red Blood Count 4.27 10^6 /uL (3.70-4.87); Red Cell Distribution Width 13 % (10-15)
[2021-05-23 20:27] LABS: INR 1.19 (0.86-1.15)
[2021-05-23 20:43] LABS: ALT 16 U/L (7-52); AST 28 U/L (13-39); Albumin 4.9 g/dL (3.2-5.2); Albumin/Globulin Ratio 1.5 (1-3); Alkaline Phosphatase 70 U/L (35-149); Anion Gap 9 mmol/L (2-11); Blood Urea Nitrogen 16 mg/dL (6-24); CO2 Carbon Dioxide 26 mmol/L (22-32); Calcium 9.8 mg/dL (8.6-10.3); Chloride 104 mmol/L (101-111); EGFR African American 88.2 (>60); EGFR Non-African American 72.9 (>60); Globulin 3.3 g/dL (2-4); Glucose 108 mg/dL (70-100); Potassium 4.4 mmol/L (3.5-5.0); Sodium 139 mmol/L (135-145); Total Protein 8.2 g/dL (6.4-8.9)
[2021-05-23 20:49] LABS: Troponin I 0.09 ng/mL (<0.03)
[2021-05-23] MEDS ORDERED: hydrALAZINE 20 mg/ml 1 ML Vial IV IV SLOW PU ONE (21:27)
[2021-05-23] MEDS ORDERED: Ondansetron 4 mg VIAL 2 MG/ML 2 ml VIAL IV PRN (23:05)
[2021-05-23] MEDS ORDERED: Morphine ORAL.SOLN 10 mg 2 mg/ml UDC 5 ml (10 mg) PO PRN (23:10)
[2021-05-23] MEDS ORDERED: Fluticasone NASAL SPRAY 50MCG 16 gm SPRAY BTL INTRANASAL PRN (23:12)
[2021-05-23] MEDS ORDERED: Albuterol HFA INHALER 8 gm MDI INH PRN (23:12)
[2021-05-23] MEDS: oxyCODONE SR 10 mg TAB PO SCH (23:41)
[2021-05-23] MEDS: Aspirin EC 81 mg TAB.EC (enteric coated) PO SCH (23:41)
[2021-05-23] MEDS ORDERED: Enoxaparin 40 MG/0.4 ML SYR SUBCUT SCH (23:45)
[2021-05-24 02:51] LABS: ABS Basophils 0.1 10^3/ul (0-0.2); ABS Eosinophils 0.1 10^3/ul (0-0.6); ABS Lymphocytes 2.1 10^3/ul (1.0-4.8); ABS Monocytes 0.7 10^3/ul (0-0.8); ABS Neutrophils 4.5 10^3/ul (1.5-7.7); Eosinophil % 1.2 %; Hematocrit 40 % (35-47); Hemoglobin 13.4 g/dL (12.0-16.0); Lymphocyte % 27.7 %; Mean Corpuscular HGB Conc 34 g/dL (31-36); Mean Corpuscular Hemoglobin 30 pg (27-31); Mean Corpuscular Volume 90 fL (80-97); Mean Platelet Volume 7.6 fL (7.4-10.4); Nucleated Red Blood Cells % 0.1; Platelet Count 311 10^3/uL (150-450); Red Blood Count 4.46 10^6 /uL (3.70-4.87); Red Cell Distribution Width 13 % (10-15); White Blood Count 7.5 10^3/uL (3.5-10.8)
[2021-05-24 03:16] LABS: Troponin I 0.08 ng/mL (<0.03)
[2021-05-24 06:16] LABS: INR 1.2 (0.86-1.15)
[2021-05-24 06:28] LABS: EGFR African American 81.2 (>60); EGFR Non-African American 67.1 (>60); HDL Cholesterol 82.1 mg/dL; Potassium 3.1 mmol/L (3.5-5.0)
[2021-05-24 06:36] LABS: Troponin I 0.06 ng/mL (<0.03)
[2021-05-24 08:01] VITALS: BP 165/93
[2021-05-24] MEDS ORDERED: CMCS: Meloxicam 7.5 mg TAB (NF) PO SCH (09:00)
[2021-05-24] MEDS ORDERED: DULoxetine DR 60 mg CAP PO SCH (09:00)
[2021-05-24] MEDS ORDERED: Cholecalciferol (VIT D3) 1,000 unit TAB PO SCH (09:00)
[2021-05-24] MEDS ORDERED: Linaclotide 290 mcg CAP (NF) PO SCH (09:00)
[2021-05-24] MEDS ORDERED: Lidocaine PATCH 5% PATCH TRANSDERM SCH (09:00)
[2021-05-24] MEDS ORDERED: Mometasone/Formoter 200/5 MDI INH SCH (09:00)
[2021-05-24] MEDS: Aspirin EC 81 mg TAB.EC (enteric coated) PO SCH (09:03)
[2021-05-24] MEDS: oxyCODONE SR 10 mg TAB PO SCH (09:05)
[2021-05-24 09:51] LABS: Magnesium 2.3 mg/dL (1.9-2.7)
[2021-05-24] MEDS ORDERED: Lidocaine Patch REMOVE PATCH PATCH OFF SCH (21:00)
== END 2021-05-24 12:34 | disposition home or self-care (01) ==
LOC: ED 17:26 → MEDTELE 23:09 → INTOOBSV 23:09 → MEDTELE 05-24 00:57
PROVIDERS: ADMIT Hospitalist; ATTEND Hospitalist